=== PATIENT | female | born 1990 | race African-American/Black ===

== ENCOUNTER 2018-11-14 17:56 | Inpatient (IN) | payer BC ==
[~2018-11-14] VITALS: Ht 160 cm; Wt 59.1 kg
--- NOTE | 2018-11-14 18:06 | NUR ---
PT C/O ACUTE SUDDEN ONSET OF RUQ ABD AND MLQ ABD PAIN THAT STARTED TODAY. PT DESCRIBES IT SHARP AND IS IN VISIBLE DISTRESS. PT WHEELED TO GURNEY DUE TO UNABLE TO WALK FROM PAIN. PT REPORTS BEING 15WKS GESTATION. . DENIES FEELING CRAMPING OR TIGHTENING TO ABD AT THIS TIME. COMFORT MEASURES IMPLEMENTED. CALL LIGHT W/IN REACH. PT AWAITING MSE. REPORT GIVEN TO JORGE HANSEN TO ASSUME CARE OF PT.
--- NOTE | 2018-11-14 18:41 | NUR ---
PER PATIENT, UNABLE TO URINATE AT THE MOMENT. REQUESTED A BED BEJARANO AND WILL TRY LATER
--- NOTE | 2018-11-14 18:42 | NUR ---
US AT BEDSIDE
[2018-11-14 18:43] LABS: CALCIUM 8.8 mg/dL (8.5-10.1); CARBON DIOXIDE 23.1 mmol/L (21-32); CHLORIDE SERUM 101 mmol/L (98-107); CREATININE SERUM 0.6 mg/dL (0.6-1.0); GFR1 > 60 mL/min; GLUCOSE SERUM 97 mg/dL (74-106); SODIUM SERUM 135 mmol/L (136-145)
[2018-11-14 18:46] LABS: BASOPHIL % 0.3 % (0-2); PLATELET COUNT 206 x10^3mcL (130-400); RED CELL DISTRIBUTION WIDTH 13.3 % (11.5-14.5)
[2018-11-14 18:48] LABS: ALKALINE PHOSPHATASE 55 U/L (46-116); ALT/SGPT 21 U/L (14-59); AST/SGOT 20 U/L (15-37); BILIRUBIN TOTAL 0.3 mg/dL (0.20-1.00); LIPASE 173 IU/L (73-393); TOTAL PROTEIN, SERUM 7.7 g/dL (6.4-8.2)
--- NOTE | 2018-11-14 18:48 | NUR ---
PT RESTING AT BEDSIDE IN NAD. BREATHING E/U BILATERAL CHEST RISE. BED AT LOWEST LEVEL. CALL LIGHT IN REACH
[2018-11-14 18:49] LABS: ALBUMIN 3.3 g/dL (3.4-5.0)
--- NOTE | 2018-11-14 19:08 | NUR ---
RECEIVED PT AWAKE, ALERT, RESPIRATIONS EVEN AND UNLABORED. REPORTS ABDOMINAL PAIN 12/27, MADE DR. PALENCIA AWARE, AWAITING ORDERS. ENCOURAGED PT TO PROVIDE URINE SAMPLE, PT VERBALIZES UNDERSTANDING. BED BEJARANO IN REACH. SAFETY PRECAUTIONS IN PLACE.
--- NOTE | 2018-11-14 19:12 | NUR ---
REPORT OFF TO HOMER, RN
--- NOTE | 2018-11-14 19:56 | NUR ---
ENCOURAGED PATIENT TO PROVIDE URINE SAMPLE, PT STATES UNABLE TO PROVIDE AT THIS TIME AND REQUESTED MORE WATER. WATER PROVIDED TO PT WITH VERBAL APPROVAL BY DR. PALENCIA. PT AWAKE, ALERT, CURRENTLY TALKING TO FAMILY AT BEDSIDE. SAFETY PRECAUTIONS IN PLACE
--- NOTE | 2018-11-14 20:36 | NUR ---
DR. PALENCIA AT BEDSIDE FOR PLAN OF CARE
--- NOTE | 2018-11-14 21:00 | NUR ---
ULTRASOUND AT BEDSIDE
--- NOTE | 2018-11-14 22:30 | NUR ---
PT RESTING WITH EYES CLOSED, RESPONDS TO VERBAL STIMULI. RESPIRATIONS EVEN AND UNLABORED. FAMILY AT BEDSIDE. SAFETY PRECAUTIONS IN PLACE
--- NOTE | 2018-11-14 23:16 | NUR ---
PER DR. PALENCIA, MAKE PT NPO. PT MADE AWARE TO NOT DRINK OR EAT ANYTHING. PT VERBALIZED UNDERSTANDING
--- NOTE | 2018-11-15 00:59 | NUR ---
PT RESTING WITH EYES CLOSED, RESPIRATIONS EVEN AND UNLABORED. SAFETY PRECAUTIONS IN PLACE.
--- NOTE | 2018-11-15 02:56 | NUR ---
PT AMBULATED TO AND FROM RESTROOM WITHOUT DIFFICULTY. PT AWAKE, ALERT, RESPIRATIONS EVEN AND UNLABORED. SAFETY PRECAUTIONS IN PLACE
--- NOTE | 2018-11-15 05:06 | NUR ---
PT REMAINS FREE FROM S/S OF DISTRESS. AWAKE, ALERT, RESPIRATIONS EVEN AND UNLABORED. CURRENTLY USING PHONE. SAFETY PRECAUTIONS IN PLACE
--- NOTE | 2018-11-15 06:29 | NUR ---
PT PROVIDED WITH AND INSTRUCTED TO COMPELETE MRI QUESTIONNAIRE FORM. PT AWAKE, ALERT, RESPIRATIONS EVEN AND UNLABORED. SAFETY PRECAUTIONS IN PLACE
--- NOTE | 2018-11-15 06:58 | NUR ---
REPORT GIVEN TO PAUL PATEL, ALL QUESTIONS AND CONCERNS WERE ADDRESSED
--- NOTE | 2018-11-15 07:43 | NUR ---
PT RECLINED ON AB IN POSITION OF COMFORT. RESPS E/U. NO S/S OF DISTRESS NOTED. CALL LIGHT W/IN REACH. WILL CONTINUE TO MONITOR.
--- NOTE | 2018-11-15 08:49 | NUR ---
MEAL TRAY PROVIDED. PT EATING W/OUT INCIDENCE
--- NOTE | 2018-11-15 09:52 | NUR ---
PT CONTINUES TO REST IN POSITION OF COMFORT. RESPS E/U. NO S/S OF DISTRESS NOTED. CALL LIGHT W/IN REACH. WILL CONTINUE TO MONITOR.
--- NOTE | 2018-11-15 12:56 | NUR ---
PT TAKEN TO MRI VIA WHEELCHAIR ACCOMPANIED BY BATTERY CHARGER CONVEYOR LINE. NO S/S OF DISTRESS NOTED. FAMILY REMAINED AT BEDSIDE.
[2018-11-15] MEDS ORDERED: PRENATAL VITAMI1 TA1 PO (15:00)
--- NOTE | 2018-11-15 15:32 | NUR ---
REPORT GIVEN TO JORGE JENNINGS TO ASSUME CARE OF PT.
--- NOTE | 2018-11-15 15:58 | NUR ---
PT TRANSFERED VIA GURNEY ACCOMPANIED BY EMT. NO S/S OF DISTRESS NOTED.
[2018-11-15 16:56] LABS: BASOPHIL % 0.3 % (0-2); PLATELET COUNT 200 x10^3mcL (130-400); RED CELL DISTRIBUTION WIDTH 13.3 % (11.5-14.5)
[2018-11-15 17:05] VITALS: BP 109/62
--- NOTE | 2018-11-15 17:07 | NUR ---
RECEIVED PT FROM ED VIA MARYANN. ORIENTED PT TO ROOM AND SURROUNDINGS. IV NOTED TO LAC PATENT AND INTACT. INSTRUCTED PT ON THE USE OF CALL LIGHT FOR ASSISTANCE. ENDORSED PT TO PRIMARY NURSE SHELLY
--- NOTE | 2018-11-15 17:08 | NUR ---
PER PHARMACIST RED, POTASSIUM 40 MEQ KLOR CON PO IS CATEGORY C RISK FOR PT DUE TO . DR ESCOBEDO NOTIFIED AND STATED NOT TO GIVE KLOR CON. DR ESCOBEDO AWARE OF POTASSIUM 3.0.
[2018-11-15 17:19] LABS: MAGNESIUM 1.6 mg/dL (1.8-2.4); PHOSPHOROUS 3.5 mg/dL (2.5-4.9)
[2018-11-15 17:21] LABS: CALCIUM 8.3 mg/dL (8.5-10.1); CARBON DIOXIDE 23.9 mmol/L (21-32); CHLORIDE SERUM 105 mmol/L (98-107); CREATININE SERUM 0.5 mg/dL (0.6-1.0); GFR1 > 60 mL/min; GLUCOSE SERUM 83 mg/dL (74-106); POTASSIUM SERUM 3.6 mmol/L (3.5-5.1); SODIUM SERUM 136 mmol/L (136-145)
--- NOTE | 2018-11-15 19:20 | NUR ---
ENDORSED CARE TO VIRY PATEL.
--- NOTE | 2018-11-15 19:50 | NUR ---
PATIENT RECEIVED IN BED SLEEPING EASILY AWAKEN WHEN NAME CALLED , PATIENT IN NO DISTRESS, DENIED HEAEDACHE NOR DIZZINESS. ORIENTED X4, SPEECH CLEAR. BREATHING EVEN AND UNLABORED BS CLEAR FOUND ON ROOM AIR SAT 100%, NON TELE , MED/SURG PATIENT, HR=82BPM. ABDOMEN SOFT NON TENDER ACTIVE BS ALL QUAD, STATED DULL BEARABLE PAIN TO RLQ RATED AT 2/10, DENIED N/V/D.SHE IS 15 WEEKS . VOIDING FREELY, DENIED PAIN UPON URINATION. SKIN INTACT. IV SITE NO SIGN OF INFILTRATION. PARENT AT BEDSIDE, PATIENT INFORMED ABOUT POC THIS SHIFT. ALL QUESTIONS AND CONCERN ADDRESSED. SAFETY PRECAUTIONS MAINTAINED. WILL CONTINUE TO MONITOR.
[2018-11-15 20:00] VITALS: BP 89/55
[2018-11-15 20:09] VITALS: BP 89/55
[2018-11-15 21:34] LABS: microscopic required? NO
[2018-11-15 21:43] LABS: UA SPECIFIC GRAVITY 1.025 (1.005-1.035); urine erythrocyte NEGATIVE (NEGATIVE)
--- NOTE | 2018-11-16 00:55 | NUR ---
PATIENT RESTING QUIETLY AND COMFORTABLY THIS TIME, EASILY AWAKEN WHEN NAME CALLED, DULL PAIN AT RLQ STATED. WILL CONTINUE TO MONITOR.
--- NOTE | 2018-11-16 03:00 | NUR ---
REMAINED ASLEEP, NO DISTRESS. AWAKEN WHEN NAME CALLED,STATED DULL RLQ PAIN RATED AT 2/10. WILL CONTINUE TO MONITOR.
[2018-11-16 05:55] VITALS: BP 93/56
[2018-11-16 06:27] LABS: BASOPHIL % 0.3 % (0-2); PLATELET COUNT 188 x10^3mcL (130-400); RED CELL DISTRIBUTION WIDTH 13.5 % (11.5-14.5)
--- NOTE | 2018-11-16 06:36 | NUR ---
PATIENT HAD A RESTFUL AND QUIET NIGHT, HAD INTERMITTENT RLQ PAIN RATED AT 2/10, NO N/V. AMBULATORY WITH STEADY GAIT. IV SITE NO SIGN OF INFILTRATION. SAFETY PRECAUTIONS MAINTAINED. WILL ENDORSE CONTINUITY OF CARE TO INCOMING NURSE.
[2018-11-16 06:58] LABS: CALCIUM 8.2 mg/dL (8.5-10.1); CARBON DIOXIDE 18.3 mmol/L (21-32); CHLORIDE SERUM 106 mmol/L (98-107); CREATININE SERUM 0.5 mg/dL (0.6-1.0); GFR1 > 60 mL/min; POTASSIUM SERUM 3.8 mmol/L (3.5-5.1); SODIUM SERUM 136 mmol/L (136-145)
[2018-11-16 07:05] LABS: GLUCOSE SERUM 57 mg/dL (74-106)
--- NOTE | 2018-11-16 07:18 | NUR ---
RECEIVED A CALL FROM LAB WITH BLOOD GLUCOSE LEVEL OF 57, RANDOM CHECKED WAS 63, REPEATED 60. WILL NOTIFY MD, PATIENT ASYMPTOMATIC. RELAY RESULT TO ROSALIA ASSIGNED NURSE THIS AM.
--- NOTE | 2018-11-16 07:22 | NUR ---
REPORTED BLOOD GLUCOSE OF 57 REPORTED BY LAB AND RANDOM CHECKED OF [address] MIRELES, AND SHE STATED WILL REPORT TO DR ESCOBEDO.
--- NOTE | 2018-11-16 07:30 | NUR ---
GLUCOSE 57, ACCUCHECK BY NIGHT NURSE 63, NIGHT NURSE NOTIFIED RESIDENT CALL PHONE.
--- NOTE | 2018-11-16 07:33 | NUR ---
BEDSIDE HANSOFF AND INTRODUCTION PERFORMED WITH INCOMING NURSE DOLLY.
--- NOTE | 2018-11-16 08:00 | NUR ---
PT GIVEN D50 IVP, DENIES DIZZINESS AND CHILLS, NO RESPRIATORY DSITRESS NOTED.
--- NOTE | 2018-11-16 08:23 | NUR ---
ACCUCHECK POST D50 IVP: 110. PT NOW ON CLEAR LIQUID DIET, NO RESPRIATORY DSITRESS NOTED, DENIES PAIN, DENIES NAUSEA, CALL LIGHT WITHIN REACH.
[2018-11-16 08:48] VITALS: BP 93/53
--- NOTE | 2018-11-16 09:33 | NUR ---
PT TOLERATING CLEAR LIQUID DIET WELL, NO RESPIRATORY DSITRESS NOTED, DENIES PAIN, DENIES NAUSEA, STATES SHE IS READY TO GO HOME. CALL LIGHT WITHIN REACH.
[2018-11-16 12:15] VITALS: BP 93/53
--- NOTE | 2018-11-16 13:41 | NUR ---
PT GIVEN DC INSTRUCTIONS AND VERBALIZED UNDERSTANDING, IV REMOVED WITH CATHETER INTACT, NO SWELLING OR ERYTHEMA TO SITE, PRESSURE APPLIED TO SITE AND GAUZE/TAPE PLACED ON SITE, NO TELE PT MEDSURG. PT OFF UNIT WITH ALL BELONGINGS VIA WHEELCHAIR ESCORTED BY FAMILY AND CHIP CRUSHER OPERATOR.
[2018-11-18 15:30] VITALS: Ht 160 cm; Wt 59.1 kg
== END 2018-11-16 14:12 | disposition home or self-care (01) | DRG 832 ==
LOC: ED 17:56 → MU 11-15 15:02
PROVIDERS: Emergency Medicine; ADMIT General Practice
DX: O99.282 Endocrine, nutritional and metabolic diseases complicating pregnancy, second trimester (principal); E87.1 Hypo-osmolality and hyponatremia; E44.1 Mild protein-calorie malnutrition; E87.6 Hypokalemia; D72.829 Elevated white blood cell count, unspecified; Z83.49 Family history of other endocrine, nutritional and metabolic diseases; Z3A.15 15 weeks gestation of pregnancy; Z68.22 Body mass index [BMI] 22.0-22.9, adult
CPT/HCPCS: 82962; J0295; J3490; J7030; J7042; Q0092